=== PATIENT | male | born 1955 | race Caucasian/White ===

== ENCOUNTER 2025-02-23 13:45 | Day surgery (SDC) | payer OTHER, MEDICARE ==
--- NOTE | 2025-02-09 13:01 | RAD REPORT ---
EXAMINATION: TWO VIEW CHEST XR CLINICAL INDICATION: pre op TECHNIQUE: 2 views of the chest was performed. COMPARISON: 06/12/2024 FINDINGS: Mild linear atelectasis in the left lung base. The lungs are otherwise clear. The heart is upper limi t of normal in size. No displaced fractures evident.
[2025-02-09 13:06] LABS: Absolute Lymphocytes (CBC) 1.6 K/uL (0.7-4.9); Hematocrit 41.3 % (39.6-49.0); Hemoglobin 14.0 g/dL (13.6-17.9); MCH 29.9 pg (27.0-35.0); MCHC 33.9 g/dL (32.0-36.0); MCV 88.1 fL (80-100); MPV 7.3 fL (7.6-11.3); Nucleated RBC Absolute Count 0.0 (0-0); Nucleated Red Blood Cells % 0.0 % (0-0); RBC Red Blood Cell Count 4.69 M/uL (4.33-5.43); White Blood Count 6.10 thou/uL (4.3-10.9)
[2025-02-09 13:06] LABS: Urine Microscopic Reflex YN NO UMIC
[2025-02-09 13:13] LABS: PT Prothrombin Time 12.7 SECONDS (10-13.0); Protime INR 1.13
[2025-02-09 13:27] LABS: Anion Gap 8.9 mEq/L (5.0-15.0); BUN Blood Urea Nitrogen 14.0 mg/dL (7-18); Glucose Level 88.0 mg/dL (74-106)
[2025-02-09 13:33] LABS: Potassium 3.9 mEq/L (3.5-5.1)
[2025-02-23] MEDS ORDERED: ONDANSETRON 4 MG/2 ML VIAL ONE (13:53)
[2025-02-23] MEDS ORDERED: FENTANYL CITR 100 MCG/2 ML ONE (13:53)
[2025-02-23] MEDS ORDERED: LIDOCAINE 1% MPF 5 ML VIAL ONE (13:53)
[2025-02-23] MEDS ORDERED: MIDAZOLAM HCL 2 MG/2 ML INJ ONE (13:53)
[2025-02-23] MEDS: Ringers Lactate 1,000 ML IV ONE (14:38)
[2025-02-23] MEDS ORDERED: EPHEDRINE SULF 50 MG/ML VIAL ONE (14:43)
[2025-02-23] MEDS: CEFAZOLIN SODIUM 2 GM/VIAL ONE (14:48)
[2025-02-23] MEDS ORDERED: CODEINE 30MG/APAP 300MG TAB PO PRN (15:39)
--- NOTE | 2025-02-23 15:55 | P.OP ---
Date of Service: 02/23/25 Preoperative diagnoses: BPH with LUTS History of UroLift Postoperative diagnoses: BPH with LUTS History of UroLift Principal procedures: Transurethral resection of the prostate Removal of foreign body/UroLift endpiece from bladder Indications for procedure: 69-year-old gentleman with obstructive LUTS due to BPH who underwent a UroLift several months ago with partial resolution of his symptoms but residual obstructive LUTS of weak stream. He underwent evaluation revealing persistence of a high bladder neck/elevated median bar likely contributing to ongoing obstruction despite the UroLift elevating and lateralizing the tissue appropriately. As a result, he was counseled on the potential benefit to resection of the bladder neck and specifically the side effect of retrograde ejaculation likely to result. Procedure note: The patient was consented in the preoperative holding area before being transferred to the operative suite where general anesthesia was induced. He was given Ancef 2 g IV antimicrobial prophylaxis, and pneumoboots were provided for DVT prophylaxis. He was placed in the lithotomy position, padded and secured to the table appropriately. His genitalia was prepped with Hibiclens that he was draped in standard fashion. The case was begun using urethral sounds to dilate the meatus and fossa navicularis from 20 Afghan to 30 Afghan with ease. I then was able to pass the 27 Afghan bipolar resectoscope sheath using a visual obturator via his urethra into his bladder observing the elevated bladder neck on the way in. As a result, I decompressed his bladder fluid and urine and switched the visual obturator for a bipolar thick resection loop. Using saline irrigation, I then began to resect the elevated bladder neck and median bar until it was smooth and down to the level of the trigone. I then continued to resect the median bar to create a smooth trough down to the level of the verumontanum. In the process, I encountered one of the posteriorly placed UroLift implants, specifically the endpiece, which I removed, as it was exposed at this point, by using the bipolar resection loop to grasp underneath the metal of the endpiece and fulgurate across the suture. This did release the endpiece, which then was delivered into his bladder. Once I was satisfied with the degree of resection, since the prior placed UroLift was beautifully elevating and lateralizing the prostate tissue anterolaterally, and a widely patent channel was open from the verumontanum into the bladder neck with the bladder completely decompressed was observed, I fulgurated to ensure no oozing at all. I then ensured to remove all prostate chips and the UroLift endpiece previously displaced, and then with the bladder decompressed again surveyed for any oozing. Once completely hemostatic, I then retrograde filled his bladder and removed the resectoscope. I then placed a 20 Afghan two-way Lakhani catheter via his urethra into his bladder with ease, placing 15 cc sterile water in the balloon. He was then taken out of the lithotomy position, awakened from general anesthesia, transferred to a stretcher, and then transferred to the recovery room in good condition. Complications: None Discharge disposition: He may remove his catheter himself at home on if he so desires, or alternatively, he can come into the urology clinic to have it removed and undergo a voiding trial formally on Saturday. Subsequent follow-up should be established with me about 3 months later unless he has issues in the interim.
[2025-02-23 16:18] VITALS: BP 156/78; TEMP 97.9; O2SAT 97
[2025-02-23] MEDS ORDERED: OXYBUTYNIN ER 5 MG TAB PO ONE (16:25)
[2025-02-23] MEDS ORDERED: PHENAZOPYRIDINE 100MG TAB PO ONE (16:25)
[2025-02-23] MEDS: OXYBUTYNIN ER 5 MG TAB PO ONE (16:33)
[2025-02-23] MEDS: PHENAZOPYRIDINE 100MG TAB PO ONE (16:33)
== END 2025-02-23 17:00 | disposition home or self-care (01) ==
LOC: OR 13:45
PROVIDERS: ATTEND Urology
PROC: 0VB07ZZ Excision of Prostate, Via Natural or Artificial Opening (ICD-10-PCS; principal; 2025-02-23 15:30)
DX: N40.1 Benign prostatic hyperplasia with lower urinary tract symptoms (principal); N13.8 Other obstructive and reflux uropathy
CPT/HCPCS: 93005; 85025; 80048; 36415; 85610; 88300; 88305; 81003; 71046; 53899; J2704; J2003; J2250; J3010; J1100; J2405; J7120